=== PATIENT | male | born 1975 | race Two or more races ===

== ENCOUNTER 2024-03-02 21:14 | Emergency (ER) | payer BC ==
[~2024-03-02] VITALS: Ht 182.9 cm; Wt 106.6 kg
[2024-03-02 21:20] VITALS: BP 122/93; TEMP 98.1
[2024-03-02] MEDS ORDERED: KETOROLAC TROMETHAMINE INJ 30 MG/ML VIAL ONE (22:03)
[2024-03-02] MEDS: KETOROLAC TROMETHAMINE INJ 60 MG/2 ML VIAL IM ONE (22:04)
[2024-03-02] MEDS ORDERED: KETO10TA2 PO (22:13)
[2024-03-02 22:21] VITALS: O2SAT 97
== END 2024-03-02 22:22 | disposition home or self-care (01) ==
LOC: ER 21:18
DX: S52.571A Other intraarticular fracture of lower end of right radius, initial encounter for closed fracture (principal); W01.0XXA Fall on same level from slipping, tripping and stumbling without subsequent striking against object, initial encounter; Y93.89 Activity, other specified; Y92.89 Other specified places as the place of occurrence of the external cause; Y99.8 Other external cause status
CPT/HCPCS: 99283; 29125; 96372; 73130; J1885